=== PATIENT | female | born 1990 | race Caucasian/White ===

== ENCOUNTER 2019-08-18 16:18 | Emergency (ER) | payer SELFPAY ==
[~2019-08-18] VITALS: Ht 157.5 cm; Wt 52.3 kg
[~2019-08-18 16:18] MED LIST: NOCURR
[2019-08-18] MEDS ORDERED: NALOXONE HCL 1 MG/ML 2 ML SYG ONE (17:40)
[2019-08-18] MEDS ORDERED: NALOXONE HCL 1 MG/ML 2 ML SYG IM ONE (17:45)
[2019-08-18] MEDS ORDERED: SODIUM CHLORIDE 0.9% 1,000 ML IV ONE (18:45)
[2019-08-18 21:11] LABS: AMPHET/METH SCREEN,URINE POSITIVE (NEGATIVE); BARBITURATE SCREEN, URINE NEGATIVE (NEGATIVE); BENZODIAZEPINES SCREEN,URINE NEGATIVE (NEGATIVE); CANNABINOID SCREEN,URINE POSITIVE (NEGATIVE); COCAINE SCREEN,URINE NEGATIVE (NEGATIVE); METHADONE SCREEN, URINE POSITIVE (NEGATIVE); OPIATE SCREEN,URINE POSITIVE (NEGATIVE)
[2019-08-18 21:20] LABS: PHENCYCLIDINE SCREEN,URINE NEGATIVE (NEGATIVE)
[2019-08-18 21:28] LABS: BASOPHILS % (AUTO) 0.1 % (0.0-2.0); EOSINOPHILS % (AUTO) 0.5 % (1.0-6.0); HEMATOCRIT 41.4 % (36-46); HEMOGLOBIN 13.7 g/dL (12.0-16.0); LYMPHOCYTES # (AUTO) 1.4 K/uL (1.0-4.8); LYMPHOCYTES % (AUTO) 13.5 % (22.0-44.0); MEAN CORPUSCULAR HEMOGLOBIN 27.9 pg (26.0-34.0); MEAN CORPUSCULAR VOLUME 85 fL (80-100); MONOCYTES # (AUTO) 0.7 K/uL (0.1-1.0); NEUTROPHILS # (AUTO) 7.9 K/uL (1.8-7.7); NEUTROPHILS % (AUTO) 78.9 % (40.0-70.0); RED CELL DISTRIBUTION WIDTH 15.6 % (11.5-14.5)
[2019-08-18 21:41] LABS: ANION GAP 9 mmol/L (8-16); CALCIUM, TOTAL 8.6 mg/dL (8.8-10.5); CARBON DIOXIDE 27 mmol/L (22-29); CHLORIDE 103 mmol/L (98-107); CREATININE 0.59 mg/dL (0.60-1.30); GLOMERULAR FILTR. RATE CALC > 60 mL/min (>60); GLUCOSE,RANDOM 97 mg/dL (70-110); POTASSIUM 3.8 mmol/L (3.5-5.1); SODIUM SERUM 139 mmol/L (136-145); UREA NITROGEN, BLOOD 9 mg/dL (7-18)
[2019-08-18 21:46] LABS: ALANINE AMINOTRANSFERASE 69 U/L (12-78); ALBUMIN 3.3 g/dL (3.4-5.0); ALKALINE PHOSPHATASE 100 U/L (46-116); ASPARTATE AMINOTRANSFERASE 58 U/L (15-37); HCG,QUANTITATIVE < 1 mIU/mL (0-6); TOTAL PROTEIN, SERUM 7.5 g/dL (6.4-8.2)
[2019-08-18 22:09] LABS: PLATELET COUNT (AUTO) 76 K/uL (150-450); PLATELET MORPHOLOGY COMMENT LARGE PLTS PRESENT
[2019-08-19] MEDS ORDERED: ACETAMINOPHEN 500 MG TABLET PO ONE (03:45)
[2019-08-19 04:02] VITALS: BP 116/72
== END 2019-08-19 06:22 | disposition home or self-care (01) ==
LOC: EMS 16:19
DX: S00.81XA Abrasion of other part of head, initial encounter (principal); L02.413 Cutaneous abscess of right upper limb; F11.10 Opioid abuse, uncomplicated; F17.210 Nicotine dependence, cigarettes, uncomplicated; Z59.0 Homelessness; X58.XXXA Exposure to other specified factors, initial encounter; Y93.89 Activity, other specified; Y92.89 Other specified places as the place of occurrence of the external cause; Y99.8 Other external cause status
CPT/HCPCS: 36415; 80053; 80307; 84702; 85025; 99285; 99406; G0480; J2310; J7030; 51701